=== PATIENT | male | born 1990 | race Asian ===

== ENCOUNTER 2017-09-26 04:45 | Emergency (ER) | payer OTHER ==
[~2017-09-26] VITALS: Ht 172.7 cm; Wt 90.9 kg
[2017-09-26 05:08] VITALS: BP 141/92
== END 2017-09-26 05:52 | disposition home or self-care (01) ==
LOC: EMS 04:46
DX: Z00.00 Encounter for general adult medical examination without abnormal findings (principal); F17.210 Nicotine dependence, cigarettes, uncomplicated
CPT/HCPCS: 99281; 99283